=== PATIENT | male | born 1990 | race Caucasian/White ===

== ENCOUNTER 2016-06-29 20:08 | Emergency (ER) | payer OTHER ==
[~2016-06-29] VITALS: Ht 162.6 cm; Wt 59.0 kg
[2016-06-29 20:26] VITALS: BP 116/73
--- NOTE | 2016-06-30 00:27 | NUR ---
PT TAKEN TO BED 8
--- NOTE | 2016-06-30 00:28 | NUR ---
26M BIB SELF W/C/O RIGHT UPPER BACK PAIN 8/10 X 5 DAYS, DENIES ANY TRAUMA TO THE AREA OR ANY ACCIDENTS. DENIES N/V/D; SKIN IS PINK/WARM/DRY; AAOX4 WITH EVEN AND STEADY GAIT; LUNGS CLEAR BL; HR EVEN AND REGULAR; PT DENIES ANY FEVER, CP, SOB, OR COUGH AT THIS TIME; PATIENT STATES PAIN OF 8/10 AT THIS TIME; VSS; PATIENT POSITIONED FOR COMFORT; HOB ELEVATED; BEDRAILS UP X2; BED DOWN. ER MD MADE AWARE OF PT STATUS.
--- NOTE | 2016-06-30 00:43 | NUR ---
Dr. Roach evaluating patient at bedside.
[2016-06-30] MEDS ORDERED: KETOROLAC 60 MG/2 ML VIAL IM ONE (00:50)
[2016-06-30 01:23] VITALS: BP 110/68
== END 2016-06-30 01:23 | disposition home or self-care (01) ==
LOC: MED 20:08
DX: M54.9 Dorsalgia, unspecified (principal)
CPT/HCPCS: 96372; 99283; J1885